=== PATIENT | male | born 1960 | race Caucasian/White ===

== ENCOUNTER → 2016-11-17 | Outpatient (CLI) | payer BC ==
[~2016-11-17] MED LIST: GLC/500 PO; KETO10TA PO; OXYC-57 PO
[2016-11-17 10:35] LABS: BASO % 0.4 %; BASO ABS # 0.03 K/uL (0-0.2); COMPLETE YES; EOS % 1.7 %; HEMATOCRIT 46.3 % (42-52); IG% 0.3 %; LYMPH % 31.7 %; LYMPH ABS # 2.24 K/uL (1.2-3.4); MEAN CELL VOLUME 87.5 fL (80-100); MEAN CORPUSCULAR HEMOGLOBIN 29.9 pg (25-34); MEAN CORPUSCULAR HGB CONC 34.1 g/dl (32-36); MEAN PLATELET VOLUME 9.9 fL (7.4-10.4); MONO % 10.6 %; NEUT % 55.3 %; PLATELET COUNT 226 K/uL (130-400); RED BLOOD COUNT 5.29 M/uL (4.7-6.1); WHITE BLOOD COUNT 7.07 K/uL (4.8-10.8)
[2016-11-17 11:17] LABS: BLOOD UREA NITROGEN 12 mg/dl (7-18); BUN/CREATININE RATIO 13.2 (10-20); CALCIUM 9.3 mg/dl (8.5-10.1); CARBON DIOXIDE 27 mmol/L (21-32); CHLORIDE 104 mmol/L (98-107); CREATININE 0.93 mg/dl (0.60-1.40); GLUCOSE 285 mg/dl (70-99); POTASSIUM 3.9 mmol/L (3.5-5.1); SODIUM 140 mmol/L (136-145)
== END | disposition home or self-care (01) ==
LOC: C.CPL 09:22
PROVIDERS: ATTEND Orthopaedic Surgery
DX: Z01.810 Encounter for preprocedural cardiovascular examination (principal); Z01.812 Encounter for preprocedural laboratory examination; M75.02 Adhesive capsulitis of left shoulder

== ENCOUNTER → 2016-11-21 | Outpatient (CLI) | payer BC ==
[2016-11-21 17:28] LABS: URINE PROTIEN/CREAT RATIO 0.1 (0-0.2); URINE TOTAL PROTEIN 17.6 mg/dl (0-11.9)
[2016-11-22 06:15] LABS: ESTIMATED AVERAGE GLUCOSE 246 mg/dl; HA1C FLAG Normal (Normal)
== END | disposition home or self-care (01) ==
LOC: C.LABBC 15:38
PROVIDERS: ATTEND Physician Assistant
DX: R73.9 Hyperglycemia, unspecified (principal)

== ENCOUNTER → 2016-12-08 | Day surgery (SDC) | payer BC ==
[2016-11-21 10:30] VITALS: Ht 177.8 cm; Wt 120.5 kg
[~2016-12-08] VITALS: Ht 177.8 cm; Wt 120.5 kg
[~2016-12-08] MED LIST changes: +ATROPINE SULFATE 0.1 MG/ML 5ML SYR IV PRN; +BUPIVACAINE/EPINEPHRINE 0.25% 1:200,000 30 ML VIAL ONE; +BUPIVACAINE/EPINEPHRINE 0.5% MPF 1:200,000 30 ML VIAL ONE; +CEFAZOLIN 3000 MG/65 ML D5W IV SCH; +DEXAMETHASONE SOD INJ 4 MG/ML VIAL ONE; +EpHEDrine SULFATE INJ 50 MG/ML AMP IV PRN; +EpINEphrine INJ 1MG/ML AMP 1 MG/ML AMP ONE; +FENTANYL CITRATE INJ 50 MCG/1 ML 2 ML VIAL IV PRN; +FENTANYL CITRATE INJ 50 MCG/1 ML 2 ML VIAL ONE; +LACTATED RINGER'S 1000ML 1,000 ML IV SCH; +LIDOCAINE HCL 2% 2 ML VIAL (20MG/ML) ONE; +METHYLPREDNISOLONE ACETATE 80 MG/ML VIAL ONE; +MIDAZOLAM HCL 1 MG/ML 2ML VIAL ONE; +ONDANSETRON INJ 2 MG/ML 2 ML VIAL IV PRN; +ONDANSETRON INJ 2 MG/ML 2 ML VIAL ONE; +OXYCODONE/ACETAMINOPHEN 5-325 TAB PO PRN; +PROMETHAZINE HCL INJ 6.25 MG in SODIUM CHLORIDE 0.9% 50ML 50 ML IV PRN; +PROPOFOL IV EMULSION 10 MG/ML 20 ML VIAL IV ONE; +SODIUM CHLORIDE 0.9% 1000ML 1,000 ML IV SCH
--- NOTE | 2016-12-08 10:03 | History & Physical Bridge - [place] ---
H&P Re-Evaluation Bridge Note: I have examined the patient, reviewed the History & Physical and in the interval since the performance of the History & Physical I have noted the following changes of clinical significance: No changes noted
--- NOTE | 2016-12-08 13:57 | Discharge Instructions-SurgCtr ---
Discharge Instructions Date of Service Dec 08, 2016. Visit Reason for Visit: Left Shoulder Adhesive Capsulitis Discharge Discharge Diagnosis / Problem: SAME ABOVE Discharge Goals Goal(s): Decrease discomfort, Improve function Medications Stopped Medications Name(s): stopped metformin. last dose on monday. Restart Stopped Medication(s): MAY RESTART 12/08/2016 Activity Recommendations Activity Limitations: as noted below Lifting Limitations: gradually increase as tolerated Exercise/Sports Limitations: gradually increase as tolerated Driving or Machine Use: resume 1 day after discharge (AND WHEN PAIN IS CONTROLLED ) Anesthesia . Post Anesthesia Instructions: If you have had General Anesthesia or IV Sedation: * Do not drive today. * Resume driving when surgeon permits. * Do not make important decisions or sign legal documents today. * Call surgeon for: 1. Temperature elevations greater than 101 degrees F. 2. Uncontrollable pain. 3. Excessive bleeding. 4. Persistent nausea and vomiting. 5. Medication intolerance (nausea, vomiting or rash). * For nausea and vomiting use only clear liquids such as: tea, soda, bouillon until nausea subsides, then gradually increase diet as tolerated. * If you have any concerns or questions, call your surgeon's office. If physician is unavailable and it is an emergency, call 911 or go to the nearest emergency room. . Instructions / Follow-Up Instructions / Follow-Up MEDICATIONS: * Resume previous medications unless instructed otherwise by your surgeon. * Always take pain medication on a full stomach or with food to avoid upset stomach. * Do not drink alcohol or drive while taking narcotics. * Ibuprofen or Tylenol may be taken if narcotic not needed. SPECIAL CARE INSTRUCTIONS: __ None _X_ Keep extremity elevated and iced x 48 hours; apply ice 20-30 minutes 8-10 times/day. May remove at night. _X_ Sling (WEAR NEEDED FOR COMFORT ONLY) __24 hrs/day __ Remove at night __ Shoulder Immobilizer __ 24 hrs/day __ Remove at night _X_ Dressing __ Maintain until seen in office, may shower with plastic over site _X_ Remove dressings in 24-48 hours and then may shower _X_ Cover incisions with band-aids after showering __ Do not remove steri-strips Call physician if chills or temperature rises above 102 degrees or pain unrelieved by prescribed pain medications at . . Diet Recommendations Home Diet: no limitations Fluid Restriction: None Procedures Procedures Performed: Left Shoulder Arthroscopic Capsular Release With Lysis Of Adhesions Pending Studies Studies pending at discharge: no Work Instructions Return To Work: 1 week (OR WHEN PAIN IS TOLERATED ) Lifting Limitations: INCREASE TOLERATED Medical Emergencies . Who to Call and When: Medical Emergencies: If at any time you feel your situation is an emergency, please call 911 immediately. . Non-Emergent Contact Non-Emergency issues call your: Primary Care Provider Call Non-Emergent contact if: you have a fever, temperature is above 101.5 . . "Provider Documentation" section prepared by Leonard Meehan. .
--- NOTE | 2016-12-08 14:44 | OPERATIVE REPORT ---
DATE OF OPERATION: 12/08/2016 PREOPERATIVE DIAGNOSIS: Adhesive capsulitis of the left shoulder. POSTOPERATIVE DIAGNOSIS: Same. PROCEDURE: Left shoulder diagnostic arthroscopy with extensive debridement, lysis of adhesions and manipulation under anesthesia. SURGEON: Dr. Paxton Zayas. VIDEOTAPE OPERATOR: Jose De Jesus Meehan PA-C, whose assistance was necessary for positioning the arm and helping with instrumentation. ANESTHESIA: Sedation with a left interscalene nerve block. COMPLICATIONS: None. CONDITION: Stable to PACU. INDICATIONS: Otf is a pleasant 56-year-old male who presented to my office with chronic left shoulder tightness and pain. It has gotten to that point where he is unable to sleep at night. MRI was negative. Physical examination was diagnostic for adhesive capsulitis. He elected to proceed with a capsular release. OPERATION AND FINDINGS: On 12/08/2016 he arrived at [facility] for the above procedure. He was seen in the preoperative holding area and the operative extremity was identified and signed. He was given a left interscalene nerve block and preoperative antibiotics. He was taken back to the operating room, laid on the table in supine position and given basic sedation. The left shoulder was then prepped and draped in sterile fashion. Time-out was done and the patient and operative extremity was properly identified. On preoperative physical examination, he had about 60 degrees of abduction and 20 degrees of external rotation. The scope was placed into the glenohumeral joint. Diagnostic arthroscopy showed no cartilage damage to the humeral head or the glenoid. The supraspinatus, infraspinatus, teres minor, and subscapularis were all checked and intact. The biceps tendon was intact. There was significant redness of the middle, superior and anterior inferior glenohumeral ligaments. An anterior portal was made. An ablator was used to completely open up the rotator interval. Time was spent removing all adhesions including underneath the coracoid. A shaver was used to remove any excess debris. The middle glenohumeral ligament was debrided and then an ablator was used to lyse the adhesions of the middle glenohumeral ligament and do a complete release. Release was then taken down to the anterior inferior glenohumeral ligament down to the 6 o'clock position. Care was taken not to disrupt the axillary nerve or the subscapularis. Significant time was spent debriding the capsular tissue back to stable margins. Once I was happy with the overall release arthroscopic instruments were removed, the shoulder was then manipulated under anesthesia and I was able to get full range of motion of the shoulder. The scope was placed back into the glenohumeral joint. A spinal needle was placed for an injection and hemostasis was controlled. Arthroscopic instruments were removed. Portal sites were closed with 3-0 nylon. The shoulder was then injected with 80 mg of Depo-Medrol. He was then placed in a soft dressing and a regular arm sling. He was then transferred to [facility] and taken to the postanesthesia care unit in stable condition. He tolerated the procedure well. I attest to the content of the Intraoperative Record and any orders documented therein. Any exception s are noted below.
--- NOTE | 2016-12-08 14:45 | Anesthesia Progress Nt - [facility] ---
Anesthesia Post Op Note Date & Time Dec 08, 2016 at 14:44 Vital Signs Pain Intensity: 0 Vital Signs Past 12 Hours Date Time Temp Pulse Resp B/P (MAP) Pulse Ox O2 Delivery O2 Flow Rate FiO2 12/08/16 14:37 166/94 12/08/16 14:35 36.6 76 12 148/90 97 Room Air 12/08/16 14:33 77 17 96 12/08/16 14:33 77 17 12/08/16 14:32 148/90 12/08/16 14:28 74 9 12/08/16 14:28 75 9 95 12/08/16 14:27 150/80 12/08/16 14:23 79 14 12/08/16 14:23 79 14 93 12/08/16 14:22 156/87 12/08/16 14:21 78 15 12/08/16 14:21 79 15 93 12/08/16 14:17 133/85 12/08/16 14:16 77 16 12/08/16 14:16 77 16 93 12/08/16 14:12 139/78 12/08/16 14:11 74 8 12/08/16 14:11 74 8 99 12/08/16 14:10 77 13 12/08/16 14:10 77 13 99 12/08/16 14:08 36.6 79 16 117/68 97 Diffusion Mask 12/08/16 14:07 157/64 12/08/16 14:05 78 11 12/08/16 14:05 78 11 98 12/08/16 14:02 139/82 12/08/16 13:08 16 12/08/16 13:07 80 12/08/16 13:07 79 19 133/71 98 12/08/16 13:02 74 12/08/16 13:02 74 19 132/86 97 12/08/16 12:57 79 12/08/16 12:57 79 9 144/83 97 12/08/16 12:52 81 18 143/83 98 12/08/16 12:52 81 12/08/16 12:50 135/98 12/08/16 12:47 83 12/08/16 12:47 83 0 96 12/08/16 12:42 83 12/08/16 12:42 83 0 95 12/08/16 12:37 13 12/08/16 12:37 78 13 12/08/16 10:20 36.9 86 18 132/84 (100) 97 Room Air Notes Mental Status: alert / awake / arousable, participated in evaluation Pt Amnestic to Procedure: Yes Nausea / Vomiting: adequately controlled Pain: adequately controlled Airway Patency, RR, SpO2: stable & adequate BP & HR: stable & adequate Hydration State: stable & adequate Anesthetic Complications: no major complications apparent Block working well in pacu
[2016-12-08 15:18] VITALS: BP 134/84; PULSE 74; TEMP 36.6; O2SAT 95
--- NOTE | 2016-12-08 17:02 | [facility] Post Operative Brief Note ---
Immediate Operative Summary Operative Date Dec 08, 2016. Pre-Operative Diagnosis Left Shoulder Adhesive Capsulitis Post-Operative Diagnosis Same Procedure(s) Performed Left Shoulder Arthroscopic Capsular Release With Lysis Of Adhesions Surgeon Dr. Katty Zayas Marketing Officer Surgeon(s) Annabelle Meehan PA-C Estimated Blood Loss 5 CC Findings as above Specimens None Complication(s) None Disposition Recovery Room / PACU
== END | disposition home or self-care (01) ==
LOC: X.SURG 09:28
PROVIDERS: ATTEND Orthopaedic Surgery
DX: M75.02 Adhesive capsulitis of left shoulder (principal)

== ENCOUNTER → 2017-03-14 | Outpatient (CLI) | payer BC ==
[~2017-03-14] MED LIST changes: -ATROPINE SULFATE 0.1 MG/ML 5ML SYR IV PRN; -BUPIVACAINE/EPINEPHRINE 0.25% 1:200,000 30 ML VIAL ONE; -BUPIVACAINE/EPINEPHRINE 0.5% MPF 1:200,000 30 ML VIAL ONE; -CEFAZOLIN 3000 MG/65 ML D5W IV SCH; -DEXAMETHASONE SOD INJ 4 MG/ML VIAL ONE; -EpHEDrine SULFATE INJ 50 MG/ML AMP IV PRN; -EpINEphrine INJ 1MG/ML AMP 1 MG/ML AMP ONE; -FENTANYL CITRATE INJ 50 MCG/1 ML 2 ML VIAL IV PRN; -FENTANYL CITRATE INJ 50 MCG/1 ML 2 ML VIAL ONE; -LACTATED RINGER'S 1000ML 1,000 ML IV SCH; -LIDOCAINE HCL 2% 2 ML VIAL (20MG/ML) ONE; -METHYLPREDNISOLONE ACETATE 80 MG/ML VIAL ONE; -MIDAZOLAM HCL 1 MG/ML 2ML VIAL ONE; -ONDANSETRON INJ 2 MG/ML 2 ML VIAL IV PRN; -ONDANSETRON INJ 2 MG/ML 2 ML VIAL ONE; -OXYCODONE/ACETAMINOPHEN 5-325 TAB PO PRN; -PROMETHAZINE HCL INJ 6.25 MG in SODIUM CHLORIDE 0.9% 50ML 50 ML IV PRN; -PROPOFOL IV EMULSION 10 MG/ML 20 ML VIAL IV ONE; -SODIUM CHLORIDE 0.9% 1000ML 1,000 ML IV SCH
[2017-03-14 09:58] LABS: ALT/SGPT 27 U/L (12-78); AST/SGOT 17 U/L (15-37); BLOOD UREA NITROGEN 11 mg/dl (7-18); CALCIUM 9.6 mg/dl (8.5-10.1); CARBON DIOXIDE 28 mmol/L (21-32); CHLORIDE 103 mmol/L (98-107); CHOLESTEROL 233 mg/dl (0-200); CREATININE 0.93 mg/dl (0.60-1.40); GLUCOSE 189 mg/dl (70-99); POTASSIUM 4.1 mmol/L (3.5-5.1); SODIUM 136 mmol/L (136-145); TRIGLYCERIDES 174 mg/dl (0-150); VERY LOW DENSITY LIPOPROT CALC 35 mg/dl
[2017-03-14 10:01] LABS: ESTIMATED AVERAGE GLUCOSE 194 mg/dl; HA1C FLAG Normal (Normal)
[2017-03-14 10:09] LABS: ALKALINE PHOSPHATASE 52 U/L (45-117); HDL CHOLESTEROL 39 mg/dl; LDL CHOLESTEROL CALCULATED 159 mg/dl; PROSTATE SPECIFIC ANTIGEN 0.953 ng/ml (0.000-4.000)
[2017-03-14 10:23] LABS: RATIO 12.9 mcg/mg (0-30.0)
--- NOTE | 2017-04-03 08:46 | CODING QUERY MEDICAL NECESSITY ---
CQSUPPORTING DIAGNOSIS NEEDED A supporting diagnosis is required for the test/procedure performed on this patient in order for us to be reimbursed by the patient's insurance. Please provide a supporting diagnosis for the following test/procedure listed below next to the test name along with your signature. *If there is no additional diagnosis for this patient that would support the following test/procedure please document that below next to the test/procedure. Test(s)/Procedure(s) that require a supporting diagnosis: DOS 03/14/17 PROSTATE SPECIFIC Provider Signature: Date: Thank you Janet H[facility] [employer] Once completed, please kindly fax back to [phone] For questions please call [phone]
== END | disposition home or self-care (01) ==
LOC: C.LAB 07:41
PROVIDERS: ATTEND Physician Assistant
DX: Z00.00 Encounter for general adult medical examination without abnormal findings (principal); E11.29 Type 2 diabetes mellitus with other diabetic kidney complication; E11.40 Type 2 diabetes mellitus with diabetic neuropathy, unspecified